=== PATIENT | female | born 1990 | race Caucasian/White ===

== ENCOUNTER 2017-05-24 15:52 | Emergency (ER) | payer MEDICAID ==
[~2017-05-24] VITALS: Ht 5209.9 cm; Wt 81.8 kg
[2017-05-24] MEDS ORDERED: normal saline 1000ML IV soln IV ONE (16:20)
[2017-05-24 16:51] LABS: BASOPHILS % (AUTO) 0.3 % (0-1); EOSINOPHILS # (AUTO) 0.3 X10'3 (0-0.9); EOSINOPHILS % (AUTO) 2.3 % (0-6); HEMATOCRIT 36.8 % (35.0-45.0); HEMOGLOBIN 12.2 g/dl (12.0-16.0); LYMPHOCYTES # (AUTO) 2.3 X10'3 (1.1-4.8); LYMPHOCYTES % (AUTO) 18.8 % (21-51); MEAN CORPUSCULAR VOLUME 87.7 FL (78-98); MEAN PLATELET VOLUME 7.4 FL (7.4-10.4); MONOCYTES # (AUTO) 0.9 X10'3 (0-0.9); MONOCYTES % (AUTO) 7.6 % (2-12); NEUTROPHILS # (AUTO) 8.5 X10'3 (1.8-7.7); PLATELET COUNT 299 X10'3 (140-440)
[2017-05-24 16:54] LABS: URINE HCG NEGATIVE (NEG)
[2017-05-24 16:58] LABS: CLARITY,URINE CLOUDY (Clear); GLUCOSE, URINE NEGATIVE (Neg); KETONES,URINE NEGATIVE (Neg); LEUKOCYTE ESTERASE ,URINE TRACE (Neg); NITRITES, URINE NEGATIVE (Neg); OCCULT BLOOD,URINE LARGE (Neg); PROTEIN,URINE NEGATIVE (Neg); UROBILINOGEN,URINE 0.2 E.U/dL (0.2-1.0)
[2017-05-24 17:03] LABS: PARTIAL THROMBOPLASTIN TIME 26 SECONDS (22-32); PROTHROMBIN TIME 10.3 SECONDS (9.0-12.0)
[2017-05-24 17:09] LABS: ALANINE AMINOTRANSFERASE 75 U/L (12-78); ALBUMIN 3.8 G/DL (3.4-5.0); ALBUMIN/GLOBULIN RATIO 1.2 (1.1-1.5); ALKALINE PHOSPHATASE 110 IU/L (46-116); ANION GAP 7 (8-16); ASPARTATE AMINO TRANSFERASE 30 U/L (10-37); BILIRUBIN,TOTAL 0.3 MG/DL (0.1-1.0); BLOOD UREA NITROGEN 12 MG/DL (7-18); BUN/CREATININE RATIO 14.1 (6.6-38.0); CALCIUM 8.5 MG/DL (8.5-10.1); CHLORIDE 109 MMOL/L (99-107); CREATININE 0.85 MG/DL (0.40-0.90); GLUCOSE 87 MG/DL (70-104); POTASSIUM 3.7 MMOL/L (3.5-5.1); SODIUM 142 MMOL/L (135-145); TOTAL CARBON DIOXIDE 26.1 MMOL/L (24-32); TOTAL PROTEIN 6.9 G/DL (6.4-8.2); eGFR 80 ML/MIN
[2017-05-24 17:12] LABS: COLOR,URINE AMBER (Yellow); UA COLLECTION TYPE CLN CATCH MIDSTREAM
[2017-05-24] MEDS ORDERED: tranexamic acid inj. 1,000 MG in normal saline 100ml IV soln 90 ML IV ONE (17:25)
[2017-05-24 17:29] LABS: BACTERIA,URINE FEW /HPF (Neg); MUCUS STRANDS MODERATE /LPF (Neg); RBC,URINE 50-100 /HPF (0-2); SQUAMOUS EPITHELIAL CELL,UR FEW /LPF (FEW)
[2017-05-24 17:30] LABS: AMORPHOUS PHOSPHATES 1+
[2017-05-24] MEDS ORDERED: morphine 5 MG/ML injection IV ONE (17:55)
[2017-05-24] MEDS ORDERED: acetaminophen 325mg tablet PO ONE (17:55)
[2017-05-24] MEDS ORDERED: ondansetron/PF 4mg/2ml inj IV ONE (19:10)
[2017-05-24 19:32] VITALS: BP 120/74
== END 2017-05-24 19:33 | disposition home or self-care (01) ==
LOC: ER 15:53
DX: N93.8 Other specified abnormal uterine and vaginal bleeding (principal); D25.1 Intramural leiomyoma of uterus; Z88.7 Allergy status to serum and vaccine
CPT/HCPCS: 36415; 76856; 80053; 81001; 81025; 85025; 85610; 85730; 86885; 86900; 86901; 87088; 93005; 96361; 96365; 96366; 96375; 99285; J2270; J2405; J7030

== ENCOUNTER 2018-07-14 08:40 | Emergency (ER) | payer MEDICAID ==
[~2018-07-14] VITALS: Ht 172.7 cm; Wt 83.7 kg
[~2018-07-14 08:40] MED LIST: FERR-119 PO
[2018-07-14 08:55] VITALS: BP 135/83
== END 2018-07-14 09:31 | disposition home or self-care (01) ==
LOC: ER 08:41
DX: J06.9 Acute upper respiratory infection, unspecified (principal)
CPT/HCPCS: 99281

== ENCOUNTER 2018-08-06 07:58 | Emergency (ER) | payer MEDICAID ==
[~2018-08-06] VITALS: Ht 170.2 cm; Wt 84.1 kg
[2018-08-06 08:32] LABS: BASOPHILS # (AUTO) 0.1 X10'3 (0-0.2); BASOPHILS % (AUTO) 0.7 % (0-1); EOSINOPHILS # (AUTO) 0.1 X10'3 (0-0.9); HEMATOCRIT 40.6 % (35.0-45.0); HEMOGLOBIN 13.7 g/dl (12.0-16.0); LYMPHOCYTES # (AUTO) 1.8 X10'3 (1.1-4.8); LYMPHOCYTES % (AUTO) 19.3 % (21-51); MEAN CORPUSCULAR HEMOGLOBIN 28.8 PG (27.0-31.0); MEAN CORPUSCULAR HGB CONC 33.8 g/dL (33.0-36.5); MEAN CORPUSCULAR VOLUME 85.4 FL (78-98); MEAN PLATELET VOLUME 7.6 FL (7.4-10.4); MONOCYTES # (AUTO) 0.8 X10'3 (0-0.9); MONOCYTES % (AUTO) 8.8 % (2-12); NEUTROPHILS # (AUTO) 6.6 X10'3 (1.8-7.7); NEUTROPHILS % (AUTO) 70.2 % (42-75); PLATELET COUNT 315 X10'3 (140-440); RED BLOOD COUNT 4.76 X10'6 (4.20-5.60); RED CELL DISTRIBUTION WIDTH 13.7 % (11.5-14.5); WHITE BLOOD COUNT 9.4 X10'3 (4.5-11.0)
[2018-08-06 08:37] LABS: CLARITY,URINE CLOUDY (Clear); COLOR,URINE YELLOW (Yellow); GLUCOSE, URINE NEGATIVE (Neg); KETONES,URINE NEGATIVE (Neg); LEUKOCYTE ESTERASE ,URINE NEGATIVE (Neg); NITRITES, URINE NEGATIVE (Neg); OCCULT BLOOD,URINE NEGATIVE (Neg); PROTEIN,URINE NEGATIVE (Neg); URINE HCG NEGATIVE (NEG); UROBILINOGEN,URINE 0.2 E.U/dL (0.2-1.0)
[2018-08-06 08:43] LABS: UA COLLECTION TYPE CLN CATCH MIDSTREAM
[2018-08-06 08:45] LABS: ALANINE AMINOTRANSFERASE 40 U/L (12-78); ALBUMIN 3.7 G/DL (3.4-5.0); ALBUMIN/GLOBULIN RATIO 1.1 (1.1-1.5); ALKALINE PHOSPHATASE 101 IU/L (46-116); ANION GAP 5 (8-16); ASPARTATE AMINO TRANSFERASE 24 U/L (10-37); BILIRUBIN,TOTAL 0.4 MG/DL (0.1-1.0); BLOOD UREA NITROGEN 13 MG/DL (7-18); BUN/CREATININE RATIO 16.5 (6.6-38.0); CALCIUM 8.8 MG/DL (8.5-10.1); CHLORIDE 107 MMOL/L (99-107); CREATININE 0.79 MG/DL (0.40-0.90); GLUCOSE 87 MG/DL (70-104); POTASSIUM 3.9 MMOL/L (3.5-5.1); SODIUM 138 MMOL/L (135-145); TOTAL CARBON DIOXIDE 25.7 MMOL/L (24-32); TOTAL PROTEIN 7.2 G/DL (6.4-8.2); eGFR 85 ML/MIN
[2018-08-06] MEDS ORDERED: ondansetron/PF 4mg/2ml inj IV ONE (08:45)
[2018-08-06] MEDS ORDERED: morphine 4 MG/ML inj SYRINge IV PRN (08:45)
[2018-08-06] MEDS ORDERED: normal saline 1000ML IV soln IVB ONE (08:45)
[2018-08-06 08:46] LABS: MUCUS STRANDS MANY /LPF (Neg); SQUAMOUS EPITHELIAL CELL,UR MANY /LPF (FEW)
[2018-08-06 08:50] LABS: PROTHROMBIN TIME 10.5 SECONDS (9.0-12.0)
[2018-08-06 08:53] LABS: BACTERIA,URINE FEW /HPF (Neg); RBC,URINE 0-2 /HPF (0-2); WBC,URINE 0-4 /HPF (0-4)
[2018-08-06 09:38] LABS: LIPASE 116 U/L (73-393)
[2018-08-06] MEDS ORDERED: ONDA4TAB12 PO (10:06)
[2018-08-06 10:25] VITALS: BP 118/72
== END 2018-08-06 10:30 | disposition home or self-care (01) ==
LOC: ER 07:59
DX: R10.31 Right lower quadrant pain (principal); Z79.899 Other long term (current) drug therapy
CPT/HCPCS: 36415; 74176; 80053; 81001; 81025; 83690; 85025; 85610; 96374; 96375; 99284; J2270; J2405; J7030

== ENCOUNTER 2018-09-15 18:24 | Emergency (ER) | payer MEDICAID ==
[~2018-09-15] VITALS: Ht 170.2 cm; Wt 76.0 kg
[~2018-09-15 18:24] MED LIST changes: +ONDA4TAB12 PO
[2018-09-15 18:35] VITALS: BP 118/81
== END 2018-09-15 20:35 | disposition home or self-care (01) ==
LOC: ER 18:24
DX: S80.02XA Contusion of left knee, initial encounter (principal); Z79.899 Other long term (current) drug therapy; Y08.89XA Assault by other specified means, initial encounter; Y93.89 Activity, other specified; Y92.89 Other specified places as the place of occurrence of the external cause; Y99.8 Other external cause status
CPT/HCPCS: 73564; 99283

== ENCOUNTER 2018-09-28 16:38 | Emergency (ER) | payer MEDICAID ==
[~2018-09-28] VITALS: Ht 170.2 cm; Wt 81.0 kg
[2018-09-28 16:58] LABS: BASOPHILS % (AUTO) 0.5 % (0-1); EOSINOPHILS # (AUTO) 0.1 X10'3 (0-0.9); EOSINOPHILS % (AUTO) 1.3 % (0-6); HEMATOCRIT 41.1 % (35.0-45.0); HEMOGLOBIN 13.9 g/dl (12.0-16.0); LYMPHOCYTES # (AUTO) 2.5 X10'3 (1.1-4.8); LYMPHOCYTES % (AUTO) 24.1 % (21-51); MEAN CORPUSCULAR HEMOGLOBIN 29.2 PG (27.0-31.0); MEAN CORPUSCULAR HGB CONC 33.8 g/dL (33.0-36.5); MEAN CORPUSCULAR VOLUME 86.3 FL (78-98); MEAN PLATELET VOLUME 7.9 FL (7.4-10.4); MONOCYTES # (AUTO) 1.3 X10'3 (0-0.9); MONOCYTES % (AUTO) 12.4 % (2-12); NEUTROPHILS # (AUTO) 6.3 X10'3 (1.8-7.7); NEUTROPHILS % (AUTO) 61.7 % (42-75); PLATELET COUNT 317 X10'3 (140-440); RED BLOOD COUNT 4.76 X10'6 (4.20-5.60); RED CELL DISTRIBUTION WIDTH 13.6 % (11.5-14.5); WHITE BLOOD COUNT 10.3 X10'3 (4.5-11.0)
[2018-09-28 17:05] LABS: URINE HCG NEGATIVE (NEG)
[2018-09-28 17:10] LABS: CLARITY,URINE CLEAR (Clear); COLOR,URINE YELLOW (Yellow); GLUCOSE, URINE NEGATIVE (Neg); KETONES,URINE NEGATIVE (Neg); LEUKOCYTE ESTERASE ,URINE NEGATIVE (Neg); NITRITES, URINE NEGATIVE (Neg); OCCULT BLOOD,URINE NEGATIVE (Neg); PH,URINE 8.5 (4.8-8.0); PROTEIN,URINE NEGATIVE (Neg); UROBILINOGEN,URINE 0.2 E.U/dL (0.2-1.0)
[2018-09-28 17:11] LABS: UA COLLECTION TYPE CLN CATCH MIDSTREAM
[2018-09-28 17:13] LABS: ALANINE AMINOTRANSFERASE 81 U/L (12-78); ALBUMIN 3.9 G/DL (3.4-5.0); ALBUMIN/GLOBULIN RATIO 1.1 (1.1-1.5); ALKALINE PHOSPHATASE 130 IU/L (46-116); ANION GAP 6 (8-16); ASPARTATE AMINO TRANSFERASE 55 U/L (10-37); BILIRUBIN,TOTAL 0.3 MG/DL (0.1-1.0); BLOOD UREA NITROGEN 15 MG/DL (7-18); BUN/CREATININE RATIO 18.5 (6.6-38.0); CHLORIDE 104 MMOL/L (99-107); CREATININE 0.81 MG/DL (0.40-0.90); GLUCOSE 95 MG/DL (70-104); SODIUM 138 MMOL/L (135-145); TOTAL CARBON DIOXIDE 28.3 MMOL/L (24-32); TOTAL PROTEIN 7.6 G/DL (6.4-8.2); eGFR 83 ML/MIN
[2018-09-28] MEDS ORDERED: ondansetron/PF 4mg/2ml inj IV ONE (17:20)
[2018-09-28] MEDS ORDERED: normal saline 1000ml 1,000 ML IV ONE (17:20)
[2018-09-28] MEDS ORDERED: morphine 4 MG/ML inj SYRINge IV ONE ×2 (17:20→18:35)
[2018-09-28] MEDS ORDERED: iohexol 300mg/ml 100ml inj. ONE (17:22)
--- NOTE | 2018-09-28 17:44 | NUR ---
patient to ct.
[2018-09-28 17:52] VITALS: BP 126/80
--- NOTE | 2018-09-28 18:34 | NUR ---
MD is going to order more pain medicine and go and talk to her about all the lab and ct findings.
[2018-09-28] MEDS ORDERED: ketorolac tromethamine 15mg/ml inj. IV ONE (18:35)
[2018-09-28] MEDS ORDERED: DICY10CA88 PO (18:50)
[2018-09-28] MEDS ORDERED: ONDA4TAB6 PO (18:50)
[2018-09-28] MEDS ORDERED: ACET1TAB12 PO (18:50)
== END 2018-09-28 19:03 | disposition home or self-care (01) ==
LOC: ER 16:38
DX: R10.31 Right lower quadrant pain (principal); Z79.899 Other long term (current) drug therapy
CPT/HCPCS: 36415; 74177; 80053; 81003; 81025; 85025; 96374; 96375; 96376; 99284; J1885; J2270; J2405; J7030; Q9967

== ENCOUNTER 2023-06-01 12:16 | Emergency (ER) | payer MEDICAID, OTHER ==
[~2023-06-01] VITALS: Ht 170.2 cm; Wt 89.3 kg
[~2023-06-01 12:16] MED LIST changes: +ACET1TAB12 PO; +DICY10CA88 PO; +ONDA4TAB6 PO; +SUCR1ORA12 PO
[2023-06-01] MEDS ORDERED: LIDOCAINE 1%/EPI 1:100,000 inj. 10 ML multi-dose vial IJ ONE (13:10)
[2023-06-01] MEDS ORDERED: SULF1TAB49 PO (13:33)
[2023-06-01 13:46] VITALS: BP 120/60; PULSE 70; RESP 16; TEMP 98.1; O2SAT 98
== END 2023-06-01 13:48 | disposition home or self-care (01) ==
LOC: ER 12:17
DX: L02.416 Cutaneous abscess of left lower limb (principal); Z98.890 Other specified postprocedural states; W57.XXXA Bitten or stung by nonvenomous insect and other nonvenomous arthropods, initial encounter; Y93.89 Activity, other specified; Y92.89 Other specified places as the place of occurrence of the external cause; Y99.8 Other external cause status
CPT/HCPCS: 10060; 87070; 87077; 87186; 99283; A6449

== ENCOUNTER 2024-04-04 02:30 | Emergency (ER) | payer OTHER ==
[~2024-04-04] VITALS: Ht 167.6 cm; Wt 86.4 kg
[~2024-04-04 02:30] MED LIST changes: +ONDA-243 PO; -ONDA4TAB12 PO
[2024-04-04 02:37] VITALS: TEMP 98.9
[2024-04-04] MEDS: normal saline 1000ml 1,000 ML IV ONE (04:54)
[2024-04-04] MEDS: ketorolac trometh 15mg/ml vial 15 MG/ML ML IV ONE (04:54)
[2024-04-04] MEDS: ondansetron/PF 4mg/2ml inj IV ONE (04:54)
[2024-04-04 05:08] LABS: BASOPHILS % (AUTO) 0.3 % (0-1); EOSINOPHILS # (AUTO) 0.1 X10'3 (0-0.9); EOSINOPHILS % (AUTO) 0.7 % (0-6); HEMATOCRIT 38.9 % (35.0-45.0); LYMPHOCYTES # (AUTO) 1.7 X10'3 (1.1-4.8); LYMPHOCYTES % (AUTO) 18.1 % (21-51); MEAN CORPUSCULAR HEMOGLOBIN 29.4 PG (27.0-31.0); MEAN CORPUSCULAR HGB CONC 33.6 g/dL (33.0-36.5); MEAN CORPUSCULAR VOLUME 87.5 FL (78-98); MEAN PLATELET VOLUME 7.5 FL (7.4-10.4); MONOCYTES # (AUTO) 0.9 X10'3 (0-0.9); MONOCYTES % (AUTO) 9.9 % (2-12); NEUTROPHILS # (AUTO) 6.8 X10'3 (1.8-7.7); PLATELET COUNT 317 X10'3 (140-440); RED BLOOD COUNT 4.44 X10'6 (4.20-5.60); RED CELL DISTRIBUTION WIDTH 13.5 % (11.5-14.5); WHITE BLOOD COUNT 9.6 X10'3 (4.5-11.0)
[2024-04-04 05:30] LABS: ALANINE AMINOTRANSFERASE 77 U/L (12-78); ALBUMIN 3.8 G/DL (3.4-5.0); ALBUMIN/GLOBULIN RATIO 1.2 (1.1-1.5); ALKALINE PHOSPHATASE 96 IU/L (46-116); ANION GAP 7 (8-16); ASPARTATE AMINO TRANSFERASE 50 U/L (10-37); BILIRUBIN,TOTAL 0.6 MG/DL (0.1-1.0); BLOOD UREA NITROGEN 15 MG/DL (7-18); BUN/CREATININE RATIO 16.7 (10.0-20.0); CALCIUM 8.7 MG/DL (8.5-10.1); CHLORIDE 105 MMOL/L (99-107); GLUCOSE 89 MG/DL (70-104); LIPASE 26 U/L (16-77); POTASSIUM 4.1 MMOL/L (3.5-5.1); SODIUM 137 MMOL/L (135-145); TOTAL CARBON DIOXIDE 24.9 MMOL/L (24-32); TOTAL PROTEIN 7.1 G/DL (6.4-8.2); eCRCL 82 ML/MIN; eGFR 71 ML/MIN
[2024-04-04] MEDS ORDERED: ONDA-245 PO (05:56)
[2024-04-04 06:06] LABS: BILIRUBIN,URINE NEGATIVE (Neg); CLARITY,URINE SLIGHTLY CLOUDY (Clear); COLOR,URINE YELLOW (Yellow); GLUCOSE, URINE NEGATIVE (Neg); KETONES,URINE NEGATIVE (Neg); LEUKOCYTE ESTERASE ,URINE NEGATIVE (Neg); NITRITES, URINE NEGATIVE (Neg); OCCULT BLOOD,URINE NEGATIVE (Neg); PROTEIN,URINE NEGATIVE (Neg); UROBILINOGEN,URINE 0.2 E.U/dL (0.2-1.0)
[2024-04-04 06:08] LABS: UA COLLECTION TYPE CLN CATCH MIDSTREAM; URINE HCG NEGATIVE (NEG)
[2024-04-04 06:14] LABS: BACTERIA,URINE FEW /HPF (Neg); MUCUS STRANDS MANY /LPF (Neg); RBC,URINE NONE SEEN /HPF (0-2); SQUAMOUS EPITHELIAL CELL,UR MANY /LPF (FEW); WBC,URINE 0-4 /HPF (0-4)
[2024-04-04 06:50] VITALS: BP 113/69; PULSE 52; RESP 12; O2SAT 100
== END 2024-04-04 07:27 | disposition home or self-care (01) ==
LOC: ER 02:31
DX: R10.32 Left lower quadrant pain (principal); R11.2 Nausea with vomiting, unspecified; Z98.51 Tubal ligation status; Z79.899 Other long term (current) drug therapy
CPT/HCPCS: 36415; 80053; 81001; 81025; 83690; 84145; 85025; 96361; 96374; 96375; 99284; J1885; J2405; J7030

== ENCOUNTER 2024-06-23 14:28 | Emergency (ER) | payer SELFPAY ==
[~2024-06-23] VITALS: Ht 170.2 cm; Wt 87.6 kg
[~2024-06-23 14:28] MED LIST changes: +ONDA-245 PO
[2024-06-23] MEDS ORDERED: TAM75C PO (16:39)
[2024-06-23 16:46] VITALS: BP 130/82; PULSE 88; RESP 18; TEMP 99.8; O2SAT 97
== END 2024-06-23 16:47 | disposition home or self-care (01) ==
LOC: ER 14:29
DX: J11.1 Influenza due to unidentified influenza virus with other respiratory manifestations (principal); Z98.51 Tubal ligation status
CPT/HCPCS: 87502; 87503; 99283

== ENCOUNTER 2025-03-21 12:40 | Emergency (ER) | payer SELFPAY ==
[~2025-03-21] VITALS: Ht 167.6 cm; Wt 89.8 kg
[2025-03-21 12:48] VITALS: TEMP 98.6
--- NOTE | 2025-03-21 12:48 | Physician Documentation ---
History of Present Illness Stated Complaint: ABDOMINAL PAIN Primary Medical Doctor: NO PMD HPI 34-year-old female presents to the emergency department reporting that she has had abdominal pain since Sunday. She also notes nausea and vomiting as well as diarrhea. She denies any fevers. Pain is on the left with radiation to the epigastric area. Pain is sharp and tends to worsen with food. She states that every time she eats about 30 minutes later she will have this pain kicked in. She has been unable to keep much food or fluids down because of the pain. Denies any history of surgeries on her abdomen aside from tubal ligation many years ago. Denies any drug or alcohol use. Medication Reconciliation Allergies: Coded Allergies: No Known Drug Allergies (Verified Allergy, Unknown, 03/21/25) Scheduled Acetaminophen with Codeine (Tylenol with Codeine #3 Tablet), 1 TAB PO Q6H PRN Dicyclomine Hcl* (Bentyl*), 1 CAP PO TID Ferrous Sulfate (Iron), 1 TAB PO DAILY, (Reported) Ondansetron 8mg ODT (Ondansetron Odt), 1 TAB PO Q6H Ondansetron Hcl (Zofran), 1 TAB PO Q6H Sucralfate (Carafate), 10 ML PO ACHS Scheduled PRN ONDANSETRON ODT 4mg tablet (Ondansetron Odt), 1 TABLET PO Q6H PRN PRN for nausea/vomiting Past Medical History Past Medical History: No Pertinent History, Pneumonia Past Surgical History: tubal ligation Alcohol Use: None Drug Use: none Lives with: Family Lives In: Home Occupation: employed Review of Systems All Other Systems at this time: Reviewed and Negative ROS As stated above in the HPI, otherwise all systems are reviewed and negative. Physical Exam Physical Exam General: Alert, Ill appearing. Neck: Full range of motion. Respiratory: Lungs clear, no respiratory distress. Chest: No accessory muscle use. Cardiovascular: Regular rate and rhythm, no murmurs. Gastrointestinal: Soft,TTP epigastric, nondistended. Bowels sounds present. Extremities: Normal range of motion, no deformity. Neurologic: Oriented x4. Psychiatric: Normal mood and affect. Skin: Normal color, warm and dry. No edema, no ecchymosis. Progress EKG/XRAY/CT/US/VASC/MRI CT : Impression Exam: CT CT ABDOMEN PELVIS W/ IV CONTRAST History: epigastric abd pain Comparison Study: None TECHNIQUE: Multidetector CT of the abdomen pelvis with IV contrast. Axial, coronal and sagittal multiplanar reformats were obtained from the axial data set by the technologist. Radiation Dose Information: CT Dose: CTDI volume is 13.04 mGy. Dose-length product is 671.48 mGy*cm FINDINGS: Bibasilar atelectasis. Partially visualized heart is unremarkable. Mild hepatomegaly. Otherwise, liver, spleen, gallbladder, pancreas and adrenal glands unremarkable. 1.3 cm left renal cyst with subcentimeter hypodense right renal lesion that is too small to characterize. Otherwise, kidneys, ureters and urinary bladder are unremarkable. Uterus is unremarkable. 4 x 3.5 cm right ovarian complex lesion with fatty component and most consistent with a dermoid cyst with an additional 4.9 x 4.3 cm left ovarian lesion with similar characteristics, most consistent with a dermoid cyst. Stomach is unremarkable. Mild wall Thickening of proximal small bowel loops which is most likely from inadequate distention. The remainder of the small bowel loops unremarkable. Appendix is unremarkable. Small to moderate amount of fecal material within the colon. No evidence of intraperitoneal free air or free fluid. No evidence of aortic aneurysm. Surgical clips are noted within the left hemipelvis. Shotty mesenteric lymph nodes which may be reactive. The soft tissues unremarkable. No evidence of acute osseous abnormalities. Small Schmorl node of the inferior L3 vertebral body. IMPRESSION: Mild wall Thickening of proximal small bowel loops which may be due to inadequate distention/mild enteritis. Bilateral ovarian dermoid cysts are noted. Small left renal cyst with subcentimeter hypodense right renal lesion that is too small to characterize. Medical Decision Making Differential Dx:Considerations: Appendicitis, Bowel obstruction, Cholelithasis, Esophagitis, Gastritis/PUD, Inflammatory BD Additional Comments 34-year-old female presenting with abdominal pain. Differential diagnoses such as pancreatitis, cholecystitis, cholelithiasis, peptic versus duodenal ulcer disease were all considered given her presentation. Lab workup was unremarkable. A CT of the abdomen and pelvis was also unremarkable aside from some mild thickening of the proximal small bowel. This could indicate potential duodenal ulcer disease especially given her clinical history and the pattern of the pain when it occurs about 30-40 minutes after eating. The patient was medicated with IV fluids as well as 40 mg of IV Protonix with some improvement of symptoms. I advised the patient that she needs to follow up with a patient care assistant and have a upper GI endoscopy performed to fully diagnose this. In the meantime I will go ahead and start her on omeprazole 40 mg daily and advised her to take this medication as prescribed. I also advised her to avoid any greasy or spicy foods as well as other acidic foods including beverages that contain caffeine or alcohol. She was advised to follow up closely with her PCP in the next 1-2 weeks as well as well as with gastroenterology. Return to the ED with any acutely worsening symptoms. Departure Disposition: HOME / SELF CARE / HOMELESS Impression: Primary Impression: Duodenal ulcer Condition: Improved Referrals: NO PRIMARY CARE PROVIDER (PCP) Prescriptions Omeprazole (Omeprazole) 20 Mg Tablet.dr 2 TAB PO DAILY for 60 Days, #120 TAB 0 Refills Prov: MADELIN MILES MD 03/21/25 Signature Scribe Signature: x Attestation: The note accurately reflects work and decisions made by me.Mp Brown NP 03/21/25 12:51 MP LAO NP Mar 21, 2025 12:48 MADELIN MILES MD Mar 21, 2025 13:35
[2025-03-21] MEDS: ketorolac trometh 15mg/ml vial 15 MG/ML ML IV ONE (13:08)
[2025-03-21] MEDS: normal saline 1000ML IV soln IVB ONE (13:08)
[2025-03-21] MEDS: ondansetron/PF 4mg/2ml inj IV ONE (13:08)
[2025-03-21 13:19] LABS: MEAN PLATELET VOLUME 7.6 FL (7.4-10.4); RED CELL DISTRIBUTION WIDTH 13.5 % (11.5-14.5)
[2025-03-21 13:33] LABS: CREATININE 0.76 MG/DL (0.40-0.90); TOTAL CARBON DIOXIDE 24.0 MMOL/L (24-32); eCRCL 96 ML/MIN; eGFR 86 ML/MIN
[2025-03-21] MEDS ORDERED: iohexol 300 MG/1 ML 50ml polymer ONE (14:07)
[2025-03-21] MEDS ORDERED: iohexol 300mg/ml 100ml inj. ONE (14:08)
--- NOTE | 2025-03-21 14:49 | RADIOLOGY REPORT ---
Exam: CT CT ABDOMEN PELVIS W/ IV CONTRAST History: epigastric abd pain Comparison Study: None TECHNIQUE: Multidetector CT of the abdomen pelvis with IV contrast. Axial, coronal and sagittal multiplanar reformats were obtained from the axial data set by the technologist. Radiation Dose Information: CT Dose: CTDI volume is 13.04 mGy. Dose-length product is 671.48 mGy*cm FINDINGS: Bibasilar atelectasis. Partially visualized heart is unremarkable. Mild hepatomegaly. Otherwise, liver, spleen, gallbladder, pancreas and adrenal glands unremarkable. 1.3 cm left renal cyst with subcentimeter hypodense right renal lesion that is too small to characterize. Otherwise, kidneys, ureters and urinary bladder are unremarkable. Uterus is unremarkable. 4 x 3.5 cm right ovarian complex lesion with fatty component and most consistent with a dermoid cyst with an additional 4.9 x 4.3 cm left ovarian lesion with similar characteristics, most consistent with a dermoid cyst. Stomach is unremarkable. Mild wall Thickening of proximal small bowel loops which is most likely from inadequate distention. The remainder of the small bowel loops unremarkable. Appendix is unremarkable. Small to moderate amount of fecal material within the colon. No evidence of intraperitoneal free air or free fluid. No evidence of aortic aneurysm. Surgical clips are noted within the left hemipelvis. Shotty mesenteric lymph nodes which may be reactive. The soft tissues unremarkable. No evidence of acute osseous abnormalities. Small Schmorl node of the inferior L3 vertebral body. IMPRESSION: Mild wall Thickening of proximal small bowel loops which may be due to inadequate distention/mild enteritis. Bilateral ovarian dermoid cysts are noted. Small left renal cyst with subcentimeter hypodense right renal lesion that is too small to characterize.
[2025-03-21 15:13] LABS: LEUKOCYTE ESTERASE ,URINE NEGATIVE (Neg); NITRITES, URINE NEGATIVE (Neg); OCCULT BLOOD,URINE NEGATIVE (Neg)
[2025-03-21 15:18] LABS: UA COLLECTION TYPE CLN CATCH MIDSTREAM
[2025-03-21 15:19] LABS: MUCUS STRANDS FEW /LPF (Neg); SQUAMOUS EPITHELIAL CELL,UR MODERATE /LPF (FEW)
[2025-03-21] MEDS ORDERED: OMEP20TA43 PO (16:59)
[2025-03-21 17:08] VITALS: BP 115/80; PULSE 50; RESP 16; O2SAT 99
== END 2025-03-21 17:09 | disposition home or self-care (01) ==
LOC: ER 12:41
DX: K26.9 Duodenal ulcer, unspecified as acute or chronic, without hemorrhage or perforation (principal); Z98.51 Tubal ligation status; Z79.899 Other long term (current) drug therapy
CPT/HCPCS: 36415; 74177; 80048; 80076; 81001; 83690; 85025; 96361; 96365; 96375; 99285; J1885; J2405; J2470; J7030; Q9967